=== PATIENT | female | born 1980 | race Caucasian/White ===

== ENCOUNTER 2023-10-31 20:37 | Inpatient (IN) | payer MEDICARE ==
[2023-10-31 21:22] LABS: #Monocytes 0.6 thou/uL (0.11-0.59); #Neutrophils 3.9 thou/uL (1.40-6.50); %Basophils 0.5 % (0.0-1.0); %Eosinophils 0.2 % (0.0-10.0); %Lymphocytes 20.8 % (21.0-51.0); %Monocytes 10.7 % (0.0-10.0); %Neutrophils 67.1 % (42.0-75.0); Hematocrit 36.8 % (36.0-47.0); Hemoglobin 13.4 g/dL (12.0-16.0); Mean Corpuscular HGB CONC 36.4 g/dL (32.0-36.0); Mean Corpuscular Hemoglobin 31.1 pg (27.0-31.0); Mean Corpuscular Volume 85.4 fl (78.0-98.0); Mean Platelet Volume 10.2 fL (7.4-10.4); Platelet Count 423 10x3/uL (130-400); RBC Distribution Width 17.2 % (11.5-14.5); Red Blood Cell (RBC) Count 4.31 mill/uL (4.20-5.40); White Blood Cell (WBC) Count 5.8 10x3/uL (4.8-10.8)
[2023-10-31] MEDS ORDERED: Aspirin Chewable 81 MG TAB ONE (21:23)
[2023-10-31 21:46] LABS: ALT (SGPT) 24 U/L (8-55); AST (SGOT) 27 U/L (5-34); Albumin 4.1 g/dL (3.5-5.0); Alkaline Phosphatase 70 U/L (40-110); Anion Gap 11 mmol/L (10-20); BUN (Urea Nitrogen) 28 mg/dL (7.0-18.7); Bilirubin, Total 1.9 mg/dL (0.2-1.2); Calc. Creatinine Clearance 0 mL/min (70-130); Calcium 10.4 mg/dL (7.8-10.44); Carbon Dioxide 30 mmol/L (22-29); Chloride 96 mmol/L (98-107); Estimated GFR 55; Globulin 5.4 g/dL (2.4-3.5); Glucose 148 mg/dL (70-105); Lipase 49 U/L (8-78); Potassium 4.3 mmol/L (3.5-5.1); Protein, Total 9.5 g/dL (6.0-8.3); Sodium 133 mmol/L (136-145)
[2023-10-31 22:05] LABS: Critical Call Chem Troponin I NUR.SH13@2204
[2023-10-31] MEDS ORDERED: Nitroglycerin 0.4 MG TAB (25 Tab Bottle) ONE ×2 (22:08→23:18)
[2023-10-31] MEDS ORDERED: Enoxaparin 60 MG (0.6 mL) SYRINGE ONE (22:36)
[2023-10-31] MEDS ORDERED: Ondansetron ODT 4 MG TAB SL PRN (23:00)
[2023-10-31] MEDS ORDERED: Ondansetron PF 4 MG/2 ML Vial IVP PRN ×2 (23:00→23:19)
[2023-10-31] MEDS ORDERED: Acetaminophen 325 MG TAB PO PRN (23:00)
[2023-10-31] MEDS ORDERED: Nitroglycerin 0.4 MG TAB (25 Tab Bottle) SL PRN (23:19)
[2023-10-31] MEDS ORDERED: Ondansetron ODT 4 MG TAB PO PRN (23:19)
[2023-11-01] MEDS: Lactated Ringer's 1,000 ML IV SCH (00:15)
[2023-11-01] MEDS: Lidocaine 2% Viscous Solution 10 ML, Aluminum & Magnesium Hydroxide 30 ML SSW SCH (00:29)
[2023-11-01 00:34] VITALS: BMI 19.5
[2023-11-01 00:38] LABS: Critical Call Chem Troponin I NUR.PM8@0037; Troponin I 0.739 ng/mL (< 0.028)
[2023-11-01 01:51] LABS: #Monocytes 0.7 thou/uL (0.11-0.59); #Neutrophils 3.7 thou/uL (1.40-6.50); %Basophils 0.4 % (0.0-1.0); %Eosinophils 0.2 % (0.0-10.0); %Monocytes 12.7 % (0.0-10.0); Hematocrit 37.4 % (36.0-47.0); Hemoglobin 13.6 g/dL (12.0-16.0); Mean Corpuscular HGB CONC 36.4 g/dL (32.0-36.0); Mean Corpuscular Volume 85.2 fl (78.0-98.0); Mean Platelet Volume 10.1 fL (7.4-10.4); Platelet Count 379 10x3/uL (130-400); RBC Distribution Width 17.3 % (11.5-14.5); Red Blood Cell (RBC) Count 4.39 mill/uL (4.20-5.40); White Blood Cell (WBC) Count 5.7 10x3/uL (4.8-10.8)
[2023-11-01] MEDS: Morphine 2 MG/ML VIAL SLOW IVP SCH (02:03)
[2023-11-01 02:47] LABS: ALT (SGPT) 22 U/L (8-55); AST (SGOT) 27 U/L (5-34); Albumin 3.8 g/dL (3.5-5.0); Alkaline Phosphatase 66 U/L (40-110); Anion Gap 18 mmol/L (10-20); BUN (Urea Nitrogen) 28 mg/dL (7.0-18.7); Bilirubin, Total 1.2 mg/dL (0.2-1.2); Calc. Creatinine Clearance 57 mL/min (70-130); Calcium 9.9 mg/dL (7.8-10.44); Carbon Dioxide 25 mmol/L (22-29); Cardiac Risk 3.7 (Less than 4.5); Chloride 97 mmol/L (98-107); Cholesterol 185 mg/dl (< 200 Desired); Estimated GFR 70; Globulin 5.1 g/dL (2.4-3.5); Glucose 102 mg/dL (70-105); HDL Cholesterol 50 mg/dL (>60 Neg Risk); LDL Cholesterol, Calculated 110 mg/dL; Potassium 4.2 mmol/L (3.5-5.1); Protein, Total 8.9 g/dL (6.0-8.3); Sodium 136 mmol/L (136-145); Triglycerides 127 mg/dL (Less than 150)
[2023-11-01 02:56] LABS: Critical Call Chem Troponin I NUR.TM8@0256; Troponin I 1.087 ng/mL (< 0.028)
[2023-11-01 06:28] LABS: Critical Call Chem Troponin I NUR.TM8@0628; Troponin I 1.509 ng/mL (< 0.028)
[2023-11-01] MEDS: Enoxaparin 60 MG (0.6 mL) SYRINGE SC SCH (08:36)
[2023-11-01] MEDS: Acetaminophen 325 MG TAB PO PRN (08:37)
[2023-11-01] MEDS ORDERED: Enoxaparin 80 MG (0.8 mL) SYRINGE SC SCH (11:00)
[2023-11-01 12:18] LABS: Amphetamine Not Detected (NotDetected); Barbiturates Screen Not Detected (NotDetected); Benzodiazepine Screen Detected (NotDetected); Cocaine Metabolite Screen Not Detected (NotDetected); Methadone Not Detected (NotDetected); Methamphetamine Not Detected (NotDetected); Opiate Screen Detected (NotDetected); Oxycodone Screen Not Detected (NotDetected); Phencyclidine (PCP) Not Detected (NotDetected); THC/Cannabinoid Screen Not Detected (NotDetected); Tricyclic Screen Not Detected (NotDetected)
[2023-11-01] MEDS ORDERED: Communication Order-Pharmacy FS SCH (18:00)
[2023-11-01] MEDS: Aspirin 81 mg Enteric Coated Tablet PO SCH (19:16)
[2023-11-01] MEDS: Sodium Chloride 0.9% 250 ML IV SCH (21:39)
[2023-11-01 22:15] LABS: Lactic Acid 2.1 mmol/L (0.5-2.2)
[2023-11-01 22:19] LABS: Anion Gap 14 mmol/L (10-20); BUN (Urea Nitrogen) 39 mg/dL (7.0-18.7); Calc. Creatinine Clearance 47 mL/min (70-130); Calcium 9.5 mg/dL (7.8-10.44); Carbon Dioxide 25 mmol/L (22-29); Chloride 100 mmol/L (98-107); Estimated GFR 56; Glucose 198 mg/dL (70-105); Magnesium 2.1 mg/dL (1.6-2.6); Potassium 5.7 mmol/L (3.5-5.1); Sodium 133 mmol/L (136-145)
[2023-11-01 22:30] LABS: Critical Call Chem Troponin I NUR.SC14@2229; Troponin I 1.265 ng/mL (< 0.028)
[2023-11-01] MEDS ORDERED: Dextrose 50% Abboject 50 ML SYRINGE SLOW IVP SCH (23:00)
[2023-11-02] MEDS: Furosemide 40 MG TAB PO SCH (00:34)
[2023-11-02] MEDS: Midodrine HCl 5 MG TAB PO SCH (00:34)
[2023-11-02] MEDS: Sodium Chloride 0.9% 250 ML IV SCH ×2 (00:34→11:39)
[2023-11-02] MEDS: Insulin Regular 300 UNITS/3 ML VIAL IVP SCH (00:34)
[2023-11-02 04:38] LABS: #Monocytes 0.8 thou/uL (0.11-0.59); #Neutrophils 6.3 thou/uL (1.40-6.50); %Basophils 0.4 % (0.0-1.0); %Lymphocytes 16.1 % (21.0-51.0); %Monocytes 9.7 % (0.0-10.0); %Neutrophils 73.2 % (42.0-75.0); Hematocrit 40.4 % (36.0-47.0); Hemoglobin 14.3 g/dL (12.0-16.0); Mean Corpuscular HGB CONC 35.4 g/dL (32.0-36.0); Mean Corpuscular Hemoglobin 31.1 pg (27.0-31.0); Mean Corpuscular Volume 87.8 fl (78.0-98.0); Mean Platelet Volume 10.9 fL (7.4-10.4); Platelet Count 407 10x3/uL (130-400); RBC Distribution Width 18.8 % (11.5-14.5); White Blood Cell (WBC) Count 8.6 10x3/uL (4.8-10.8)
[2023-11-02 04:55] LABS: Anion Gap 16 mmol/L (10-20); BUN (Urea Nitrogen) 34 mg/dL (7.0-18.7); Calc. Creatinine Clearance 56 mL/min (70-130); Calcium 9.5 mg/dL (7.8-10.44); Carbon Dioxide 24 mmol/L (22-29); Chloride 100 mmol/L (98-107); Estimated GFR 70; Glucose 100 mg/dL (70-105); Potassium 3.8 mmol/L (3.5-5.1); Sodium 136 mmol/L (136-145)
[2023-11-02] MEDS: Aspirin 81 mg Enteric Coated Tablet PO SCH (08:16)
[2023-11-02] MEDS ORDERED: Midazolam HCl 2 mg/2 ml Vial ONE (08:39)
[2023-11-02] MEDS ORDERED: fentaNYL 50 mcg/mL 1 mL Vial ONE (08:39)
[2023-11-02] MEDS ORDERED: Heparin 10,000 UNITS/ 10 ML VIAL ONE (08:40)
[2023-11-02] MEDS ORDERED: Lidocaine 1% (PF) 30 ML VIAL ONE (08:40)
[2023-11-02] MEDS ORDERED: Iopamidol 370 76% 100 ML VIAL ONE (09:36)
[2023-11-02] MEDS ORDERED: Sodium Chloride 0.9% 200 ML IV PRN (09:37)
[2023-11-02] MEDS: Enoxaparin 30 MG (0.3 mL) SYRINGE SC SCH (21:27)
[2023-11-02] MEDS: Lorazepam 1 MG TAB PO PRN (23:50)
[2023-11-03 05:11] LABS: #Monocytes 0.7 thou/uL (0.11-0.59); #Neutrophils 4.6 thou/uL (1.40-6.50); %Basophils 0.4 % (0.0-1.0); %Eosinophils 0.1 % (0.0-10.0); %Monocytes 8.2 % (0.0-10.0); %Neutrophils 55.7 % (42.0-75.0); Hematocrit 33.7 % (36.0-47.0); Mean Corpuscular HGB CONC 35.6 g/dL (32.0-36.0); Mean Corpuscular Volume 87.1 fl (78.0-98.0); Platelet Count 299 10x3/uL (130-400); RBC Distribution Width 18.2 % (11.5-14.5); Red Blood Cell (RBC) Count 3.87 mill/uL (4.20-5.40); White Blood Cell (WBC) Count 8.2 10x3/uL (4.8-10.8)
[2023-11-03 05:36] LABS: Anion Gap 12 mmol/L (10-20); BUN (Urea Nitrogen) 32 mg/dL (7.0-18.7); Calc. Creatinine Clearance 54 mL/min (70-130); Calcium 9.2 mg/dL (7.8-10.44); Carbon Dioxide 26 mmol/L (22-29); Chloride 100 mmol/L (98-107); Estimated GFR 67; Glucose 84 mg/dL (70-105); Potassium 3.2 mmol/L (3.5-5.1); Sodium 135 mmol/L (136-145)
[2023-11-03] MEDS: Empagliflozin 10 MG TAB PO SCH (09:18)
[2023-11-03] MEDS: Carvedilol 3.125 MG TAB PO SCH (16:27)
[2023-11-04 04:51] LABS: #Monocytes 0.6 thou/uL (0.11-0.59); #Neutrophils 3.5 thou/uL (1.40-6.50); %Basophils 0.4 % (0.0-1.0); %Eosinophils 0.3 % (0.0-10.0); %Lymphocytes 39.8 % (21.0-51.0); %Monocytes 8.4 % (0.0-10.0); %Neutrophils 50.4 % (42.0-75.0); Hematocrit 29.7 % (36.0-47.0); Hemoglobin 10.6 g/dL (12.0-16.0); Mean Corpuscular HGB CONC 35.7 g/dL (32.0-36.0); Mean Corpuscular Hemoglobin 31.4 pg (27.0-31.0); Mean Corpuscular Volume 87.9 fl (78.0-98.0); Mean Platelet Volume 10.6 fL (7.4-10.4); Platelet Count 277 10x3/uL (130-400); RBC Distribution Width 18.6 % (11.5-14.5); Red Blood Cell (RBC) Count 3.38 mill/uL (4.20-5.40); White Blood Cell (WBC) Count 6.9 10x3/uL (4.8-10.8)
[2023-11-04 05:55] LABS: Anion Gap 13 mmol/L (10-20); BUN (Urea Nitrogen) 23 mg/dL (7.0-18.7); Calc. Creatinine Clearance 63 mL/min (70-130); Calcium 8.3 mg/dL (7.8-10.44); Carbon Dioxide 29 mmol/L (22-29); Chloride 99 mmol/L (98-107); Estimated GFR 81; Glucose 61 mg/dL (70-105); Potassium 2.9 mmol/L (3.5-5.1); Sodium 138 mmol/L (136-145)
[2023-11-04] MEDS: Potassium Chloride 20 MEQ TAB PO SCH ×2 (10:21→17:01)
[2023-11-04] MEDS: BuPROPion XL 150 MG ER.TAB PO SCH (20:23)
[2023-11-04] MEDS: Milk Of Magnesia 30 ML UDCUP PO PRN (21:10)
[2023-11-05 04:02] LABS: #Monocytes 0.6 thou/uL (0.11-0.59); #Neutrophils 2.7 thou/uL (1.40-6.50); %Basophils 0.7 % (0.0-1.0); %Eosinophils 0.7 % (0.0-10.0); %Lymphocytes 41.5 % (21.0-51.0); %Monocytes 9.7 % (0.0-10.0); %Neutrophils 46.7 % (42.0-75.0); Hematocrit 28.2 % (36.0-47.0); Hemoglobin 9.8 g/dL (12.0-16.0); Mean Corpuscular HGB CONC 34.8 g/dL (32.0-36.0); Mean Corpuscular Hemoglobin 31.4 pg (27.0-31.0); Mean Corpuscular Volume 90.4 fl (78.0-98.0); Mean Platelet Volume 10.3 fL (7.4-10.4); Platelet Count 278 10x3/uL (130-400); RBC Distribution Width 19.4 % (11.5-14.5); Red Blood Cell (RBC) Count 3.12 mill/uL (4.20-5.40); White Blood Cell (WBC) Count 5.8 10x3/uL (4.8-10.8)
[2023-11-05 04:45] LABS: Anion Gap 9 mmol/L (10-20); BUN (Urea Nitrogen) 21 mg/dL (7.0-18.7); Calc. Creatinine Clearance 62 mL/min (70-130); Calcium 8.3 mg/dL (7.8-10.44); Carbon Dioxide 27 mmol/L (22-29); Chloride 104 mmol/L (98-107); Estimated GFR 79; Glucose 77 mg/dL (70-105); Magnesium 2.3 mg/dL (1.6-2.6); Potassium 4.1 mmol/L (3.5-5.1); Sodium 136 mmol/L (136-145)
[2023-11-05] MEDS: buPROPion HCl 100 MG TAB PO SCH (10:10)
[2023-11-05] MEDS: Sacubitril 24MG/Valsartan 26 MG TAB PO SCH (23:03)
[2023-11-06 04:36] LABS: #Eosinphils 0.1 thou/uL (0.0-0.7); #Monocytes 0.5 thou/uL (0.11-0.59); %Basophils 0.7 % (0.0-1.0); %Eosinophils 1.5 % (0.0-10.0); %Lymphocytes 37.6 % (21.0-51.0); %Monocytes 8.6 % (0.0-10.0); %Neutrophils 50.9 % (42.0-75.0); Hematocrit 29.8 % (36.0-47.0); Hemoglobin 10.2 g/dL (12.0-16.0); Mean Corpuscular HGB CONC 34.2 g/dL (32.0-36.0); Mean Corpuscular Hemoglobin 30.8 pg (27.0-31.0); Mean Platelet Volume 10.5 fL (7.4-10.4); Platelet Count 248 10x3/uL (130-400); RBC Distribution Width 19.6 % (11.5-14.5); Red Blood Cell (RBC) Count 3.31 mill/uL (4.20-5.40); White Blood Cell (WBC) Count 5.9 10x3/uL (4.8-10.8)
[2023-11-06 04:56] LABS: Anion Gap 10 mmol/L (10-20); BUN (Urea Nitrogen) 13 mg/dL (7.0-18.7); Calc. Creatinine Clearance 75 mL/min (70-130); Calcium 8.8 mg/dL (7.8-10.44); Carbon Dioxide 27 mmol/L (22-29); Chloride 102 mmol/L (98-107); Estimated GFR 99; Glucose 82 mg/dL (70-105); Potassium 3.6 mmol/L (3.5-5.1); Sodium 135 mmol/L (136-145)
[2023-11-06] MEDS ORDERED: Midazolam HCl 2 mg/2 ml Vial ONE (09:20)
[2023-11-06] MEDS ORDERED: PROPOFOL 20 ML ONE (09:20)
[2023-11-06 12:56] VITALS: BP 125/86; TEMP 97.5
== END 2023-11-06 14:00 | disposition home or self-care (01) | DRG 280 ==
LOC: ERS 20:37 → 2SW 23:52 → OBSVTOIN 11-01 14:29
PROVIDERS: ADMIT Student in an Organized Health Care Education/Training Program; ATTEND Internal Medicine
PROC: B2151ZZ Fluoroscopy of Left Heart using Low Osmolar Contrast (ICD-10-PCS; principal; 2023-11-02)
PROC: 4A023N7 Measurement of Cardiac Sampling and Pressure, Left Heart, Percutaneous Approach (ICD-10-PCS; 2023-11-02)
PROC: B2111ZZ Fluoroscopy of Multiple Coronary Arteries using Low Osmolar Contrast (ICD-10-PCS; 2023-11-02)
PROC: 0D768ZZ Dilation of Stomach, Via Natural or Artificial Opening Endoscopic (ICD-10-PCS; 2023-11-06)
DX: I21.4 Non-ST elevation (NSTEMI) myocardial infarction (principal); I50.21 Acute systolic (congestive) heart failure; E44.0 Moderate protein-calorie malnutrition; Z68.1 Body mass index [BMI] 19.9 or less, adult; I42.8 Other cardiomyopathies; I42.0 Dilated cardiomyopathy; N17.9 Acute kidney failure, unspecified; K91.858 Other complications of intestinal pouch; F41.9 Anxiety disorder, unspecified; R10.84 Generalized abdominal pain; F32.A Depression, unspecified; R63.4 Abnormal weight loss; R79.89 Other specified abnormal findings of blood chemistry; R63.0 Anorexia; D64.9 Anemia, unspecified; Z90.49 Acquired absence of other specified parts of digestive tract; Z90.89 Acquired absence of other organs; Z82.49 Family history of ischemic heart disease and other diseases of the circulatory system; Z98.84 Bariatric surgery status; K62.4 Stenosis of anus and rectum
CPT/HCPCS: 36415; 36416; 71045; 78472; 80048; 80053; 80061; 80306; 82274; 83605; 83690; 83735; 83880; 84484; 85025; 93005; 93010; 93306; 93458; 93798; 94760; 96372; 96375; 99152; A9560; C1769; G0378; J1644; J1650; J1815; J2001; J2250; J2272; J2704; J3010; J7030; J7120; Q9967